=== PATIENT | female | born 1935 | race Caucasian/White ===

== ENCOUNTER 2016-09-25 17:40 | Emergency (ER) | payer MEDICARE ==
[2016-09-25 17:49] VITALS: BP 107/47
--- NOTE | 2016-09-25 18:17 | ER Document Report ---
ED Medical Screen (RME) - General Chief Complaint: Animal Bite Stated Complaint: CAT BITE/LEFT FOREARM Time seen by provider: 18:14 Mode of Arrival: Ambulatory Information source: Patient Notes: 81-year-old female presents to ED for cat bite on on Saturday night. Daughter-in- law states that she has been cleaning it and monitoring at every night. Today when she removed the dressing the scab came off with peroxide and pus started draining out of the wound. Denies history of diabetes only diagnosis is Alzheimer's, high blood pressure, high cholesterol. Does not know when her last tetanus immunization was. Cat is the household indoor/outdoor cat and it is up-to-date in his immunizations I have greeted and performed a rapid initial assessment of this patient. A comprehensive ED assessment and evaluation of the patient, analysis of test results and completion of medical decision making process will be conducted by an additional ED providers. Physical Exam - Vital signs Vitals: Temp Pulse Resp BP Pulse Ox 98.5 F 58 L 18 107/47 L 97 09/25/16 17:48 09/25/16 17:48 09/25/16 17:48 09/25/16 17:48 09/25/16 17:48 Course - Vital Signs Vital signs: Temp Pulse Resp BP Pulse Ox 98.5 F 58 L 18 107/47 L 97 09/25/16 17:48 09/25/16 17:48 09/25/16 17:48 09/25/16 17:48 09/25/16 17:48
[2016-09-25] MEDS ORDERED: DIPH/PERTUSS(ACELL)/TETANUS VAC/PF 0.5 ML SYR (>=10YO) IM ONE (19:25)
[2016-09-25] MEDS ORDERED: TETANUS/DIPHTHERIA TOX-ADULT 0.5 ML SYR (>=7YO) IM ONE (19:39)
--- NOTE | 2016-09-25 19:43 | ER Document Report ---
ED Animal Bite - General Chief Complaint: Cat Bite Stated Complaint: CAT BITE/LEFT FOREARM Time seen by provider: 19:39 Mode of Arrival: Ambulatory Notes: This is a [id number] 82-year-old female with a history of hypertension and Alzheimer's disease hyperlipidemia that presents today with a cat bite to the left wrist. She states that on Saturday night she sustained this injury. [id number]-mo-xwa has been cleaning the wound and bandaging it with mupirocen. However this morning she noticed pus drainage from the wound. The cat is up-to- date on immunizations however patient does not recall her last tetanus shot. Patient denies nausea vomiting fever or chills. She does not have a history of MRSA. TRAVEL OUTSIDE OF THE [place] IN LAST 30 DAYS: No - Related Data Allergies/Adverse Reactions: No Known Allergies Allergy (Unverified 09/25/16 18:17) Past Medical History - General Information source: Patient - Social History Smoking Status: Never Smoker Chew tobacco use (# tins/day): No Frequency of alcohol use: Rare Drug Abuse: None Family History: Reviewed & Not Pertinent Patient has suicidal ideation: No Patient has homicidal ideation: No Renal/ Medical History: Denies: Hx Peritoneal Dialysis Review of Systems - Review of Systems Constitutional: No symptoms reported. denies: Chills, Fever EENT: No symptoms reported Cardiovascular: No symptoms reported Respiratory: No symptoms reported Gastrointestinal: No symptoms reported Genitourinary: No symptoms reported Female Genitourinary: No symptoms reported Musculoskeletal: See HPI Skin: See HPI Hematologic/Lymphatic: No symptoms reported Neurological/Psychological: No symptoms reported Physical Exam - Vital signs Vitals: Temp Pulse Resp BP Pulse Ox 98.5 F 53 L 18 107/47 L 98 09/25/16 17:47 09/25/16 17:47 09/25/16 17:47 09/25/16 17:47 09/25/16 17:47 - General General appearance: Appears well, Alert In distress: None - HEENT Head: Normocephalic, Atraumatic Eyes: Normal Conjunctiva: Normal - Respiratory Respiratory status: No respiratory distress Breath sounds: Normal. No: Rales, Rhonchi, Stridor, Wheezing - Cardiovascular Rhythm: Regular Heart sounds: Normal auscultation - Abdominal Bowel sounds: Normal Tenderness: Nontender - Extremities General upper extremity: Normal inspection - +2 radial pulses bilaterally. Normal capillary refill bilaterally of the index finger and middle fingers, Normal ROM - Patient has good normal range of wrist bilaterally. No pain with flexion or extension radial or ulnar deviation. Patient has good range of motion of all digits bilaterally. Moderate swelling of the left wrist compared to right. No pain to palpation except over wound site of the left wrist. General lower extremity: Normal inspection Elbow: Normal, Nontender - Neurological Cognition: Normal. No: Confused - Psychological Associated symptoms: Normal affect, Normal mood - Skin Skin Temperature: Warm Skin Moisture: Dry Skin Color: Normal Skin irregularity: Lesion - Puncture wound over the dorsal aspect of the left wrist radial side. Wound is draining pus. Erythema extends from the base of the thumb to radial side of lower radius. Patient has normal sensation in all digits bilaterally. Patient has good range of motion of all digits bilaterally. Patient has good range of motion of wrists bilaterally. Course - Re-evaluation Re-evalutation: 09/25/16 20:16 Patient was advised to keep the limb elevated. Patient was advised to stop topical mupirocin and peroxide. Patient was advised to return to the emergency department if pain of the wrist with motion developed, swelling of the fingers, fever, or any concerning findings or symptoms. Here in the emergency department vital signs are stable she is afebrile. She denied pain with any motion of the left wrist. She had good range of motion of all digits bilaterally and sensation bilaterally on both the palmar and dorsal aspect of the extremity. Patient was given multiple opportunities to ask questions. - Vital Signs Vital signs: Temp Pulse Resp BP Pulse Ox 98.5 F 58 L 18 107/47 L 97 09/25/16 17:48 09/25/16 17:48 09/25/16 17:48 09/25/16 17:48 09/25/16 17:48 Discharge - Discharge Clinical Impression: Cat bite involving extremity Cellulitis Qualifiers: Site of cellulitis: extremity Site of cellulitis of extremity: upper extremity Laterality: left Qualified Code(s): L03.114 - Cellulitis of left upper limb Condition: Good Disposition: HOME, SELF-CARE Additional Instructions: Please return to the emergency department if symptoms worsen such as painful motion of the wrist, increased drainage, fever, etc. follow-up with primary care physician as soon as possible. Prescriptions: Amox Tr/Potassium Clavulanate [Augmentin 113-125 mg Tablet] 1 tab PO BID #12 tablet Referrals: [facility] [Provider Group] - Follow up as needed
[2016-09-25] MEDS ORDERED: AMOXICILLIN TR/POT CLAVULANATE 500-125 MG TAB PO ONE (20:02)
== END 2016-09-25 20:10 | disposition home or self-care (01) ==
LOC: ER 17:40
DX: S51.852A Open bite of left forearm, initial encounter (principal); L03.114 Cellulitis of left upper limb; W55.01XA Bitten by cat, initial encounter
CPT/HCPCS: 99283; 90471; 87070; 87205; 87077; 90714; A9270

== ENCOUNTER → 2018-05-01 | Outpatient (CLI) | payer MEDICARE, OTHER ==
--- NOTE | 2018-05-12 13:46 | WOMENS IMAGING REPORT ---
EXAM DESCRIPTION: 3D SCREENING MAMMO BILAT COMPLETED DATE/TIME: 05/01/2018 10:38 am REASON FOR STUDY: BILATERAL SCREENING MAMMO/Z85.3 COMPARISON: Outside films 2012 TECHNIQUE: Standard craniocaudal and mediolateral oblique views of each breast recorded using digita l acquisition and breast tomosynthesis. LIMITATIONS: None. FINDINGS: Findings present which are benign by mammographic criteria. No suspicious masses, calcifi cations or architectural distortion. Pertinent benign findings: Old lumpectomy change in the far right upper outer quadrant with surgical clips and dystrophic calcifications. Benign bilateral breast parenchymal calcifications are present. Read with the assistance of CAD. .[facility] - R2 Cenova Version 1.3 .[facility] - R2 Cenova Version 1.3 .[facility] - R2 Cenova Version 2.4 .[facility] [place] R2 Cenova Version 2.4 .[facility] - R2 [employer] Special Agent Version 9.2 Benign mammographic findings may include one or more of the following: Smooth masses, popcorn/rim/co arse calcifications, asymmetries, post-procedure changes, and lesions with long-standing stability. IMPRESSION: BENIGN MAMMOGRAPHIC FINDINGS. BIRADS 2 BREAST DENSITY: c. The breasts are heterogeneously dense, which may obscure small masses. BIRAD: 2 BENIGN FINDING(S) RECOMMENDATION: RECOMMENDATION: ROUTINE SCREENING Please continue yearly bilateral screening tomosynthesis in May 2019 COMMENT: The patient has been notified of the results by letter per SA requirements. Additional no tification policies are in place for contacting patient with suspicious or incomplete findings. Quality ID #[id number]: The [employer] recommends an annual screening mammogram for women aged 40 years or over. This facility utilizes a reminder system to ensure that all patients receive reminder letters, and/or direct phone calls for appointments. This includes reminders for routine scr eening mammograms, diagnostic mammograms, or other Breast Imaging Interventions when appropriate. Th is patient will be placed in the appropriate reminder system. The [employer] (ACR) has developed recommendations for screening MRI of the breast s in certain patient populations, to be used in conjunction with mammography. Breast MRI surveillanc e may be appropriate for women with more than 20% lifetime risk of developing breast cancer as deter mined by genetic testing, significant family history of the disease, or history of mantle radiation f or Hodgkins Disease. ACR Practice Guidelines 2008. DBT Technology DBT is a type of tomographic mammography. With conventional mammography, overlapping breast tissue ma y make lesions difficult to detect, even with good compression. DBT uses an x-ray tube that rotates a round the breast, taking images at different angles. These images are then combined to create thin sl ices of the breast that the radiologist can view as a 3D reconstruction. The Hologic unit can perform full-field digital mammograms (2D imaging); or DBT (3D imaging); or both, in a combination mode that quickly performs both the mammogram and the tomosynthesis scan while the breast is still compressed. PQRS 6045F: Fluoroscopic imaging is not utilized for breast tomosynthesis. TECHNICAL DOCUMENTATION: FINDING NUMBER: (1) ASSESSMENT: (1) JOB ID: [id number] [employer]- All Rights Reserved Reading location - IP/workstation name: [email or web address]
== END ==
LOC: WI 09:30
PROVIDERS: ATTEND Internal Medicine Geriatric Medicine
DX: Z00.00 Encounter for general adult medical examination without abnormal findings (principal); Z12.31 Encounter for screening mammogram for malignant neoplasm of breast
CPT/HCPCS: 77063; 77067

== ENCOUNTER 2018-12-02 16:31 | Emergency (ER) | payer MEDICARE, OTHER ==
[2018-12-02] MEDS ORDERED: LIDOCAINE 1% INJ-PF (10 MG/ML) 30 ML SDV INJ ONE (19:15)
[2018-12-02] MEDS ORDERED: DIPH/PERTUSS(ACELL)/TETANUS VAC/PF 0.5 ML SYR (>=10YO) IM ONE (19:19)
--- NOTE | 2018-12-02 19:22 | ER Document Report ---
ED Wound - General Chief Complaint: Laceration Stated Complaint: KNEE LACERATION Time Seen by Provider: 12/02/18 18:57 Primary Care Provider: NGUYỄN SRIVASTAVA MD [Primary Care Provider] - Follow up as needed Notes: Very pleasant 83-year-old female with hypertension and dementia presents to the emergency department after falling up the stairs and cutting her right knee. Her son states that she did not hit her head or suffer loss of consciousness. No syncopal episode. Not on anticoagulation. Patient is able to bear weight on it and was walking afterwards. Full range of motion. No other complaints TRAVEL OUTSIDE OF THE [place] IN LAST 30 DAYS: No - Related Data Allergies/Adverse Reactions: No Known Allergies Allergy (Verified 12/02/18 16:33) Past Medical History - Social History Smoking Status: Former Smoker Family History: Reviewed & Not Pertinent Patient has suicidal ideation: No Patient has homicidal ideation: No - Past Medical History Cardiac Medical History: Reports: Hx Hypercholesterolemia, Hx Hypertension Renal/ Medical History: Denies: Hx Peritoneal Dialysis Past Surgical History: Reports: Hx Breast Surgery Physical Exam - Vital signs Vitals: Temp Pulse Resp BP Pulse Ox 97.4 F 61 15 118/55 L 100 12/02/18 16:50 12/02/18 16:50 12/02/18 16:50 12/02/18 16:50 12/02/18 16:50 - Notes Notes: PHYSICAL EXAMINATION: Reviewed vital signs and charting by RN GENERAL: Alert, interacts well. No acute distress. HEAD: Normocephalic, atraumatic. EYES: Pupils equal and round. Extraocular movements intact. EXTREMITIES: Moves all 4 extremities spontaneously. No edema, No cyanosis. Normal distal neurovascular exam BACK: No CVAT NEUROLOGIC: Oriented and appropriate. Normal speech. PSYCH: Normal affect, normal mood. SKIN: Warm, dry, normal turgor. Approximately 5 cm horizontal laceration across the right patella, linear, mild oozing of blood. Course - Re-evaluation Re-evalutation: 12/02/18 19:22 Pleasant female. Unknown when last tetanus shot was. Will give Tdap booster. Will obtain x-ray of right knee to assess for fracture or dislocation. Plan for laceration repair. 12/02/18 21:59 X-ray negative for laceration, dislocation or any patellar abnormality or bony abnormality. Laceration repair with complete required 3 vertical mattress sutures and simple interrupted sutures. Patient tolerated procedure very well patient has very close supervision at home and because she has Alzheimer's she would most likely not tolerate a knee immobilizer. She stays at home with her son and [id number] and will have 24-hour supervision and they said they would prefer that she did not have any immobilizer. Patient is stable for discharge. - Vital Signs Vital signs: Temp Pulse Resp BP Pulse Ox 97.4 F 61 15 118/55 L 100 12/02/18 16:50 12/02/18 16:50 12/02/18 16:50 12/02/18 16:50 12/02/18 16:50 Discharge - Discharge Clinical Impression: Laceration Condition: Good Disposition: HOME, SELF-CARE Instructions: Antibiotic Ointment Protection ([facility]), Laceration Care ([facility]), Soap Cleansing ([facility]) Additional Instructions: Please return to your primary doctor, the ED, or an urgent care in 7 days for suture removal. Return immediately if you develop spreading redness around the wound, pus from the wound, worsening pain, or a fever of >101. Keep the area clean and dry. Wash gently with soap and water twice daily and cover with antibiotic ointment. Referrals: NGUYỄN SRIVASTAVA MD [Primary Care Provider] - Follow up as needed
--- NOTE | 2018-12-02 20:31 | RADIOLOGY REPORT (SQ) ---
EXAM DESCRIPTION: Right knee Views: 3 CLINICAL HISTORY: 83 years Female, fall and laceration COMPARISON: None. FINDINGS: Alignment is anatomic. No patellar subluxation. No joint effusion. No acute fracture. There are no focal lytic bone changes or periosteal reaction. Benign-appearing sclerotic focus is noted in the proximal tibial metaphysis. There are scattered vascular calcifications. No hyperdense foreign bodies. IMPRESSION: 1. No acute findings.
[2018-12-02 22:14] VITALS: BP 152/81
== END 2018-12-02 22:15 | disposition home or self-care (01) ==
LOC: ER 16:31
PROC: 0HQKXZZ Repair Right Lower Leg Skin, External Approach (ICD-10-PCS; principal; 2018-12-02)
DX: S81.011A Laceration without foreign body, right knee, initial encounter (principal); W10.9XXA Fall (on) (from) unspecified stairs and steps, initial encounter; Z87.891 Personal history of nicotine dependence; I10 Essential (primary) hypertension; F03.90 Unspecified dementia, unspecified severity, without behavioral disturbance, psychotic disturbance, mood disturbance, and anxiety
CPT/HCPCS: 99283; 90471; 73562; 90715; 12001; J3490

== ENCOUNTER 2018-12-12 11:21 | Emergency (ER) | payer MEDICARE, OTHER ==
[2018-12-12 11:29] VITALS: BP 125/59
--- NOTE | 2018-12-12 12:02 | ER Document Report ---
HPI - HPI Patient complains to provider of: suture removal Time Seen by Provider: 12/12/18 11:53 Onset: Other - 10 days Onset/Duration: Better Pain Level: Denies Context: Patient presents for suture removal to right knee laceration. Patient denies any problems with the sutured laceration. Exacerbated by: Denies Relieved by: Denies Similar symptoms previously: No Recently seen / treated by doctor: Yes - ROS ROS below otherwise negative: Yes Systems Reviewed and Negative: Yes All other systems reviewed and negative - CONSTITUTIONAL Constitutional: DENIES: Fever, Chills - DERM Skin Problems: Laceration Past Medical History - General Information source: Patient - Social History Smoking Status: Never Smoker Frequency of alcohol use: None Drug Abuse: None Family History: Reviewed & Not Pertinent - Past Medical History Cardiac Medical History: Reports: Hx Hypercholesterolemia, Hx Hypertension Renal/ Medical History: Denies: Hx Peritoneal Dialysis Past Surgical History: Reports: Hx Breast Surgery Vertical Provider Document - CONSTITUTIONAL Agree With Documented VS: Yes Exam Limitations: No Limitations General Appearance: WD/WN, No Apparent Distress - INFECTION CONTROL TRAVEL OUTSIDE OF THE [place] IN LAST 30 DAYS: No - HEENT HEENT: Atraumatic, Normocephalic - NECK Neck: Normal Inspection - RESPIRATORY Respiratory: No Respiratory Distress - CARDIOVASCULAR Pulses: Normal: Dorsalis pedis - MUSCULOSKELETAL/EXTREMETIES Musculoskeletal/Extremeties: MAEW, FROM - NEURO Level of Consciousness: Awake, Alert, Appropriate Motor/Sensory: No Motor Deficit - DERM Integumentary: Warm, Dry, Laceration - Sutured 5 cm laceration to right knee with 8 intact sutures. Wound edges approximated, no surrounding erythema. Course - Vital Signs Vital signs: Temp Pulse Resp BP Pulse Ox 98.2 F 63 16 125/59 L 97 12/12/18 11:28 12/12/18 11:28 12/12/18 11:28 12/12/18 11:28 12/12/18 11:28 Discharge - Discharge Clinical Impression: Encounter for removal of sutures Condition: Stable Disposition: HOME, SELF-CARE Instructions: Care of Steri-Strip Closure ([facility]), Suture Removal Additional Instructions: Return immediately for any new or worsening symptoms Followup with your primary care provider, call tomorrow to make a followup appointment Referrals: NGUYỄN SRIVASTAVA MD [Primary Care Provider] - Follow up as needed
== END 2018-12-12 12:28 | disposition home or self-care (01) ==
LOC: ER 11:21
DX: S81.011D Laceration without foreign body, right knee, subsequent encounter (principal); X58.XXXD Exposure to other specified factors, subsequent encounter; I10 Essential (primary) hypertension